=== PATIENT | male | born 1980 | race Caucasian/White ===

== ENCOUNTER 2016-11-08 01:04 | Inpatient (IN) | payer MEDICAID ==
[~2016-11-08] VITALS: Ht 160 cm; Wt 89.2 kg
[2016-11-08] VITALS (18 sets, daily range): BP systolic 109–129; BP diastolic 64–75; PULSE 53–73; RESP 17–24; TEMP 97.7
[~2016-11-08 01:04] MED LIST: ALBU8.5H3 INH; FAMO-18 PO
--- NOTE | 2016-11-08 01:44 | ERA ---
ER Documentation Chief Complaint Date/Time DATE: 11/08/16 TIME: 01:41 Chief Complaint mid abd pain x 1 week, vomited blood once today HPI The patient is a 36-year-old male, presenting to the ER because of intermittent abdominal pain for 1 week, 06/09, worse today. He claims that he vomited dark red blood 2 today, could not specify how much blood he vomited. He complains of epigastric abdominal pain, denies fever, neck pain, chest pain, dysuria, diarrhea, constipation. He does not smoke nor drink Past medical history: Asthma Past surgical history: None ROS All systems reviewed and are negative except as per history of present illness. Medications Home Meds Active Scripts Albuterol Sulfate* (Proair HFA*) 8.5 Gm Hfa.aer.ad, 2 PUFF INH Q4, #1 INHALER Prov:CARL LALA NP 11/01/16 Famotidine* (Pepcid*) 20 Mg Tablet, 20 MG PO QAM for 4 Days, TAB Prov:CARL LALA NP 11/01/16 Allergies Allergies: Coded Allergies: Penicillins (Verified Allergy, Unknown, 11/08/16) PMhx/Soc History of Surgery: No Anesthesia Reaction: No Hx Neurological Disorder: No Hx Respiratory Disorders: Yes (ASTHMA) Hx Cardiac Disorders: No Hx Psychiatric Problems: No Hx Miscellaneous Medical Probl: No Hx Alcohol Use: No Hx Substance Use: No Hx Tobacco Use: No Physical Exam Vitals Vital Signs Date Time Temp Pulse Resp B/P Pulse Ox O2 Delivery O2 Flow Rate FiO2 11/08/16 01:06 98.6 82 20 125/77 100 Physical Exam Const: No acute distress. Head: Atraumatic. Eyes: Normal Conjunctiva. ENT: Normal External Ears, Nose and Mouth. Neck: Full range of motion. No meningismus. Resp: Clear to auscultation bilaterally. Cardio: Regular rate and rhythm, no murmurs. Abd: Soft, non distended, normal bowel sounds, moderate epigastric tenderness, no rigidity, rebound, CVA tenderness Skin: No petechiae or rashes. Back: No midline or flank tenderness. Ext: No cyanosis, or edema. Neur: Awake and alert. No focal deficit Psych: Normal Mood and Affect. Result Diagram: 11/08/16 01511/08/16154 Results 24 hrs Laboratory Tests Test 11/08/16 01:55 Activated Partial Thromboplast Time 31.5Sec Alanine Aminotransferase (ALT/SGPT) 31IU/L Albumin 4.2g/dl Albumin/Globulin Ratio 1.31 Alkaline Phosphatase 65IU/L Anion Gap 17 Aspartate Amino Transf (AST/SGOT) 19IU/L Basophils # 0.010^3/ul Basophils % 0.3% Blood Urea Nitrogen 21mg/dl Calcium Level 9.2mg/dl Carbon Dioxide Level 28mmol/L Chloride Level 104mmol/L Creatinine 1.01mg/dl Direct Bilirubin 0.00mg/dl Eosinophils # 0.710^3/ul Eosinophils % 6.0% Globulin 3.20g/dl Glucose Level 95mg/dl Hematocrit 41.2% Hemoglobin 13.6g/dl INR International Normalized Ratio 0.98 Indirect Bilirubin 0.2mg/dl Lipase 40U/L Lymphocytes # 3.010^3/ul Lymphocytes % 24.6% Mean Corpuscular Hemoglobin 28.6pg Mean Corpuscular Hemoglobin Concent 33.0g/dl Mean Corpuscular Volume 86.6fl Mean Platelet Volume 9.8fl Monocytes # 0.610^3/ul Monocytes % 5.0% Neutrophils # 7.810^3/ul Neutrophils % 63.9% Nucleated Red Blood Cells # 0.010^3/ul Nucleated Red Blood Cells % 0.0/100WBC Platelet Count 72649^3/UL Potassium Level 3.8mmol/L Prothrombin Time 13.0Sec Prothrombin Time Ratio 1.0 Red Blood Count 4.7610^6/ul Red Cell Distribution Width 12.4% Sodium Level 145mmol/L Total Bilirubin 0.2mg/dl Total Protein 7.4g/dl White Blood Count 12.210^3/ul Current Medications Medications (Trade) Dose Ordered Sig/Gerardo Route PRN Reason Start Time Stop Time Status Last Admin Dose Admin Pantoprazole (Protonix Iv) 40 mg ONCE STAT IV 11/08/16 01:47 11/08/16 01:50 DC 11/08/16 02:07 Morphine Sulfate (morphine) 4 mg ONCE STAT IV 11/08/16 01:47 11/08/16 01:50 DC 11/08/16 02:08 Ondansetron HCl (Zofran Inj) 4 mg ONCE STAT IV 11/08/16 01:47 11/08/16 01:50 DC 11/08/16 02:07 Procedures/MDM EKG: Read by emergency physician Rate/Rhythm: Normal Sinus Rhythm 74 beats/min QRS, ST, T-waves: No ST elevation, no T inversion Impression: Normal EKG [place] [id number] Radiology Main Line: [phone] DIAGNOSTIC IMAGING REPORT Patient: MANI RIVAS : 1980 Age: 36 Sex: M MR #: [id number] DOS: 11/08/16 0000 Ordering MD: ANNELISE TAO MD Location: E/R Room/Bed: PROCEDURE: CHEST - 1 VIEW CLINICAL INDICATION: 36-year-old male for nasogastric tube placement. TECHNIQUE: A single frontal AP view of the chest was performed portably. The images were reviewed on a PACS workstation. COMPARISON: Chest x-ray November 01, 2016. FINDINGS: There is a nasogastric tube identified with the tip in the gastric fundus region. The cardiomediastinal silhouette has a normal appearance. There is no evidence for an infiltrate. There is no evidence for congestive heart failure. There is no evidence for pneumothorax. The osseous structures are intact. IMPRESSION: 1. Nasogastric tube identified with the tip in the gastric fundus region. 2. No evidence for active cardiopulmonary disease. .Nabil Lawrence MD, MD Date Time Electronically viewed and signed by .Nabil Lawrence MD, on 11/08/2016 02:57 .M/ CC: ANNELISE TAO MD [place] [id number] Radiology Main Line: [phone] DIAGNOSTIC IMAGING REPORT Patient: MANI RIVAS : 1980 Age: 36 Sex: M MR #: [id number] DOS: 11/08/16 0152 Ordering MD: ANNELISE TAO MD Location: E/R Room/Bed: PROCEDURE: CT ABDOMEN/PELVIS WITHOUT CONTRAST CLINICAL INDICATION: 36-year-old male with abdominal pain. TECHNIQUE: The study was performed utilizing a [employer] VCT 64-slice CT scanner. Direct axial sections were obtained through the abdomen and pelvis without the use of intravenous contrast material. Sagittal and coronal reformations were obtained. Automated exposure control and iterative reconstruction techniques were utilized for this examination. The images were reviewed on a PACS workstation. CTD/vol = 10.8 mGy; Total Exam DLP = 595.6 mGy -cm. COMPARISON: None. FINDINGS: The lung bases are unremarkable. There is no evidence for significant pleural effusion. The liver has a normal size and contour without focal areas of abnormal density. No intrahepatic nor extrahepatic biliary ductal dilatation is seen. The gallbladder demonstrates no wall thickening nor pericholecystic fluid. No biliary stones are evident. The pancreas is without areas of abnormal attenuation. The spleen is identified and has a normal size without abnormal density. The adrenal glands are unremarkable. The kidneys are without abnormal density. No hydroureteronephrosis nor nephroureterolithiasis is evident. The urinary bladder contains urine. There is mild retained stool within the ascending colon without obstruction. The appendix is visualized and is without abnormal thickening or surrounding inflammatory reaction. There is no significant free fluid. There is a small left inguinal hernia containing fat. The aortoiliac vessels are without aneurysmal dilatation. The osseous structures are intact. IMPRESSION: 1. No CT evidence for obstructive uropathy or renal calculi. 2. Mild retained stool within the ascending colon without obstruction. 3. No CT evidence for appendicitis. 4. Small left inguinal hernia containing fat. .Nabil Lawrence MD, MD Date Time Electronically viewed and signed by .Nabil Lawrence MD, MD on 11/08/2016 02:29 .M/ CC: ANNELISE TAO MD MEDICAL MAKING DECISION: The patient is a 36-year-old male, presenting with acute upper gastrointestinal bleeding. The NG tube was inserted that drained out 100 mm of coffee-ground emesis. He was treated with 1 L normal saline, morphine 4 mg IV for pain, Zofran 4 mg IV for nausea, Protonix 40 mg IV with good response. The differential diagnoses considered include but are not limited to gastritis, peptic ulcer disease, esophageal varices, Morelia-Stiles tear. Critical Care: Time: 35 minutes excluding all billable procedures. Treatments/Evaluations: Close monitoring and treatment of unstable vital signs, cardiorespiratory, and neurologic status, while maintaining tight balance of fluid, respiratory, and cardiac interventions. Departure Diagnosis: Primary Impression: Acute upper GI bleed Condition: Stable Comments I discussed the findings with the patient. I discussed the patient with the on- call hospitalist Dr. Palacios who was made aware of the lab, the treatment, the patient condition. The patient is admitted to telemetry at 4 AM The patient's blood pressure was elevated (>120/80) but appears stable without evidence of hypertension emergency or urgency. The patient was counseled about the risks of hypertension and urged to pursue outpatient monitoring and therapy within a week after discharge with their primary care physician. ANNELISE TAO MD Nov 08, 2016 01:44
[2016-11-08] MEDS ORDERED: morphine 4 MG/ML VIAL IV STA (01:47)
[2016-11-08] MEDS ORDERED: PANTOPRAZOLE 40 MG INJ IV STA (01:47)
[2016-11-08] MEDS ORDERED: ONDANSETRON 4 MG INJ IV STA (01:47)
[2016-11-08 02:19] LABS: ADD SCAN DIFF NO
[2016-11-08 02:24] LABS: BASOPHILS % 0.3 % (0.0-2.0); EOSINOPHILS # 0.7 10^3/ul (0.0-0.5); HEMATOCRIT 41.2 % (42.0-52.0); HEMOGLOBIN 13.6 g/dl (14.0-18.0); LYMPHOCYTES % 24.6 % (15.0-51.0); MEAN CORPUSCULAR HEMOGLOBIN 28.6 pg (29.0-33.0); MEAN CORPUSCULAR VOLUME 86.6 fl (82.0-101.0); MEAN PLATELET VOLUME 9.8 fl (7.4-10.4); MONOCYTE # 0.6 10^3/ul (0.3-0.9); NEUTROPHIL # 7.8 10^3/ul (1.6-7.5); NEUTROPHILS % 63.9 % (39.0-77.0); PLATELET COUNT 341 10^3/UL (140-415); RED BLOOD COUNT 4.76 10^6/ul (4.70-6.10); RED CELL DISTRIBUTION WIDTH 12.4 % (11.5-14.5); WHITE BLOOD COUNT 12.2 10^3/ul (4.8-10.8)
--- NOTE | 2016-11-08 02:30 | RADRPT ---
PROCEDURE: CT ABDOMEN/PELVIS WITHOUT CONTRAST CLINICAL INDICATION: 36-year-old male with abdominal pain. TECHNIQUE: The study was performed utilizing a [employer] VCT 64-slice CT scanner. Direct axia l sections were obtained through the abdomen and pelvis without the use of intravenous contrast mate rial. Sagittal and coronal reformations were obtained. Automated exposure control and iterative romeo nstruction techniques were utilized for this examination. The images [facility] CTD/vol = 10.8 mGy; Total Exam DLP = 595.6 mGy-cm. COMPARISON: None. FINDINGS: The lung bases are unremarkable. There is no evidence for significant pleural effusion. The liver has a normal size and contour without focal areas of abnormal density. No intrahepatic nor extrahepa tic biliary ductal dilatation is seen. The gallbladder demonstrates no wall thickening nor perichole cystic fluid. No biliary stones are evident. The pancreas is without areas of abnormal attenuation. The spleen is identified and has a normal size without abnormal density. The adrenal glands are unr emarkable. The kidneys are without abnormal density. No hydroureteronephrosis nor nephroureterolithi asis is evident. The urinary bladder contains urine. There is mild retained stool within the ascendi ng colon without obstruction. The appendix is visualized and is without abnormal thickening or surro unding inflammatory reaction. There is no significant free fluid. There is a small left inguinal he rnia containing fat. The aortoiliac vessels are without aneurysmal dilatation. The osseous structures are intact. IMPRESSION: 1. No CT evidence for obstructive uropathy or renal calculi. 2. Mild retained stool within the ascending colon without obstruction. 3. No CT evidence for appendicitis. 4. Small left inguinal hernia containing fat. .Nabil Lawrence MD, MD Date Time Electronically viewed and signed by .Nabil Lawrence MD, MD on 11/08/2016 02:29 .M/
[2016-11-08 02:34] LABS: ALBUMIN 4.2 g/dl (3.3-4.9); INR 0.98
[2016-11-08 02:35] LABS: PARTIAL THROMBOPLASTIN TIME 31.5 Sec (25.0-35.0); POTASSIUM 3.8 mmol/L (3.5-5.1)
[2016-11-08 02:37] LABS: ALBUMIN/GLOBULIN RATIO 1.31; BILIRUBIN,INDIRECT 0.2 mg/dl (0-1.1); BILIRUBIN,TOTAL 0.2 mg/dl (0.2-1.3); CREATININE 1.01 mg/dl (0.61-1.24); TOTAL PROTEIN 7.4 g/dl (6.1-8.1)
[2016-11-08 02:38] LABS: CALCIUM 9.2 mg/dl (8.4-10.2)
--- NOTE | 2016-11-08 02:57 | RADRPT ---
PROCEDURE: CHEST - 1 VIEW CLINICAL INDICATION: 36-year-old male for nasogastric tube placement. TECHNIQUE: A single frontal AP view of the chest was performed portably. The images were reviewed on a PACS workstation. COMPARISON: Chest x-ray November 01, 2016. FINDINGS: There is a nasogastric tube identified with the tip in the gastric fundus region. The cardiomediast inal silhouette has a normal appearance. There is no evidence for an infiltrate. There is no evide nce for congestive heart failure. There is no evidence for pneumothorax. The osseous structures are intact. IMPRESSION: 1. Nasogastric tube identified with the tip in the gastric fundus region. 2. No evidence for active cardiopulmonary disease. .Nabil Lawrence MD, MD Date Time Electronically viewed and signed by .Nabil Lawrence MD, on 11/08/2016 02:57 .M/
[2016-11-08] MEDS ORDERED: NACL 0.9% 3 ML SYG IV SCH (04:30)
[2016-11-08] MEDS ORDERED: ONDANSETRON 4 MG TAB PO PRN (04:30)
[2016-11-08] MEDS ORDERED: LORAZEPAM 2 MG INJ IV PRN (04:30)
[2016-11-08] MEDS ORDERED: ONDANSETRON 4 MG INJ IV PRN (04:30)
[2016-11-08] MEDS: SOD CHLORIDE 0.9% 1,000 ML IV SCH ×3 (04:48→20:11)
[2016-11-08] MEDS: ALBUTEROL HFA 8 GM INHALER INH SCH ×5 (07:18→20:10)
--- NOTE | 2016-11-08 09:29 | CONS ---
Date/Time of Note Date/Time of Note DATE: 11/08/16 TIME: 09:23 Assessment/Plan Assessment/Plan Additional Assessment/Plan Acute anemia Evaluate GI bleed versus chronic iron deficiency vs other etiology Stool OB, if positive strongly recommend EGD Monitor H&H every 8 hours, transfuse 2 units for hemoglobin less than 7.[address] abdomen: 1. No CT evidence for obstructive uropathy or renal calculi. 2. Mild retained stool within the ascending colon without obstruction. 3. No CT evidence for appendicitis. 4. Small left inguinal hernia containing fat. Continue PPI and Octreotide drips EGD if clinically indicated, pt advised of R/B/A to procedure and provide informed consent to proceed Further recommendations depend on clinical course Patient seen in collaboration with Dr. Leung Consultation Date/Type/Reason Admit Date/Time Nov 08, 2016 at 04:02 Type of Consultation: Gastroenterology Reason for Consultation Anemia Hx of Present Illness Mr. Mo Blunt is a 36-year-old Welsh-speaking male that presented to the ED today secondary to intense abdominal pain and one episode of hematemesis. Patient states that symptoms have been present for close to weeks but intensified yesterday. He denies fever, chills, shortness of breath, diarrhea, sick contacts, alcohol abuse, NSAID use, and any comorbid conditions. Patient also denies previous episode. Recommend EGD, patient advised of risks /benefits/alternatives to procedure and he provides informed consent to proceed. Past Medical History Medical History: no pertinent history Past Surgical History Past Surgical Hx: no surgical history Social History Alcohol Use: rarely Smoking Status: Never smoker Exam/Review of Systems Vital Signs Vitals Vital Signs Date Time Temp Pulse Resp B/P Pulse Ox O2 Delivery O2 Flow Rate FiO2 11/08/16 08:46 98.7 68 17 129/75 98 Room Air Exam Constitutional: alert, oriented, well developed Psych: nl mood/affect Head: normocephalic Eyes: EOMI, nl conjunctiva, nl lids ENMT: nl external ears & nose, nl lips & teeth, nl nasal mucosa & septum Respiratory: clear to auscultation, normal air movement Cardiovascular: regular rate and rhythm Gastrointestinal: soft, epigastric tenderness Musculoskeletal: nl extremities to inspection Neurological: POWER TECHNICIAN II-XII intact Results Result Diagram: 11/08/1615411/08/16154 Results 24 hrs Laboratory Tests Test 11/08/16 01:55 Activated Partial Thromboplast Time 31.5 Alanine Aminotransferase (ALT/SGPT) 31 Albumin 4.2 Albumin/Globulin Ratio 1.31 Alkaline Phosphatase 65 Anion Gap 17 H Aspartate Amino Transf (AST/SGOT) 19 Basophils # 0.0 Basophils % 0.3 Blood Urea Nitrogen 21 H Calcium Level 9.2 Carbon Dioxide Level 28 Chloride Level 104 Creatinine 1.01 Direct Bilirubin 0.00 Eosinophils # 0.7 H Eosinophils % 6.0 Globulin 3.20 Glucose Level 95 Hematocrit 41.2 L Hemoglobin 13.6 L INR International Normalized Ratio 0.98 Indirect Bilirubin 0.2 Lipase 40 Lymphocytes # 3.0 H Lymphocytes % 24.6 Mean Corpuscular Hemoglobin 28.6 L Mean Corpuscular Hemoglobin Concent 33.0 Mean Corpuscular Volume 86.6 Mean Platelet Volume 9.8 Monocytes # 0.6 Monocytes % 5.0 Neutrophils # 7.8 H Neutrophils % 63.9 Nucleated Red Blood Cells # 0.0 Nucleated Red Blood Cells % 0.0 Platelet Count 341 Potassium Level 3.8 Prothrombin Time 13.0 Prothrombin Time Ratio 1.0 Red Blood Count 4.76 Red Cell Distribution Width 12.4 Sodium Level 145 H Total Bilirubin 0.2 Total Protein 7.4 White Blood Count 12.2 H Medications Medications Current Medications Sodium Chloride (NS) 1,000 ml @ 125 mls/hr Q8H IV Last administered on t 08:31; Admin Dose 125 MLS/HR; Start 11/08/16 at 04:26 Lorazepam (Ativan) 0.5 mg Q6H PRN IV ANXIETY; Start 11/08/16 at 04:30 Ondansetron HCl (Zofran Tab) 4 mg Q6H PRN PO NAUSEA AND/OR VOMITING; Start 07/17 at 04:30 Ondansetron HCl (Zofran Inj) 4 mg Q6H PRN IV NAUSEA AND/OR VOMITING; Start 07/17 at 04:30 JIMMIE BETHEA Nov 08, 2016 09:29
--- NOTE | 2016-11-08 10:18 | HP ---
Date/Time of Note Date/Time of Note DATE: 11/08/16 TIME: 10:18 Assessment/Plan VTE Prophylaxis VTE Prophylaxis Intervention: contraindicated VTE Contraindication Reason: bleeding Lines/Catheters IV Catheter Type (from Nrsg): Peripheral IV Assessment/Plan Assessment/Plan 1) Acute upper GI bleed - Admit to Tele - GI Consult - NPO HPI/ROS Admit Date/Time Admit Date/Time Nov 08, 2016 at 04:02 Hx of Present Illness Chief Complaint mid abd pain x 1 week, vomited blood once today HPI The patient is a 36-year-old male, presenting to the ER because of intermittent abdominal pain for 1 week, 06/09, worse today. He claims that he vomited dark red blood 2 today, could not specify how much blood he vomited. He complains of epigastric abdominal pain, denies fever, neck pain, chest pain, dysuria, diarrhea, constipation. He does not smoke, but he admits to drinking a couple of drinks once in a while. ER course per ER physician: The NG tube was inserted that drained out 100 mm of coffee-ground emesis. He was treated with 1 L normal saline, morphine 4 mg IV for pain, Zofran 4 mg IV for nausea, Protonix 40 mg IV with good response. The differential diagnoses considered include but are not limited to gastritis, peptic ulcer disease, esophageal varices, Morelia-Stiles tear. ROS Constitutional: No chills, No febrile Eyes: No discharge, No visual change ENT: No dysphagia, No sore throat Respiratory: No cough, No shortness of breath, No wheezing Cardiovascular: No chest pain, No edema, No palpitations Gastrointestinal: blood, pain, No diarrhea Genitourinary: No dysuria, No hematuria Musculoskeletal: No back pain, No neck pain Skin: No pruritis, No rash Neurologic: No confusion, No dizziness, No focal-weakness, No headache, No syncope Endocrine: No polydypsia, No polyuria Lymphatic: No adenopathy, No tender nodes Immunologic: No pruritis, No rhinitis PMH/Family/Social Past Medical History Medical History: other (Asthma) Past Surgical History Past Surgical Hx: no surgical history Social History Alcohol Use: rarely Smoking Status: Never smoker Drug Use: none Exam/Review of Systems Vital Signs Vitals Vital Signs Date Time Temp Pulse Resp B/P Pulse Ox O2 Delivery O2 Flow Rate FiO2 11/08/16 09:23 69 11/08/16 08:46 98.7 17 129/75 98 Room Air Exam Constitutional: alert, oriented, well developed Head: atraumatic, normocephalic Eyes: EOMI (No scleral icterus.) Neck: supple Respiratory: clear to auscultation, normal air movement Cardiovascular: nl pulses, regular rate and rhythm Gastrointestinal: bowel sounds (Hypoactive), soft, tender (Minimal tenderness in epigastrium. No HSM appreciated.), No hepatomegaly, No mass, No rebound or guarding Musculoskeletal: muscle tone (Normal), nl extremities to inspection Neurological: GTA II-XII intact (grossly), nl mental status, nl speech, nl strength Skin: nl turgor (Normal moisture and temperature. No appreciable rash. No jaundice.) Lymph: nl lymph nodes (cervical) Labs Result Diagram: 11/08/1615411/08/16154 Medications Medications Current Medications Sodium Chloride (NS) 1,000 ml @ 125 mls/hr Q8H IV Last administered on t 08:31; Admin Dose 125 MLS/HR; Start 11/08/16 at 04:26 Lorazepam (Ativan) 0.5 mg Q6H PRN IV ANXIETY; Start 11/08/16 at 04:30 Ondansetron HCl (Zofran Tab) 4 mg Q6H PRN PO NAUSEA AND/OR VOMITING; Start 07/17 at 04:30 Ondansetron HCl 4 mg 4 mg Q6H PRN IV NAUSEA AND/OR VOMITING; Start 11/08/16 at 04:30 Pantoprazole 80 mg/Sodium Chloride 100 ml @ 10 mls/hr Q10H IV ; Start 11/08/16 at 11:00 Octreotide Acetate/Sodium Chloride (Sandostatin/NS) 50 ml @ 2.5 mls/hr Q20H IV ; Start 11/08/16 at 11:00 Influenza Virus Vaccine (Fluzone) 0.5 ml ONCE ONCE IM* ; Start 11/10/16 at 09:00 ; Stop 11/10/16 at 09:01 Procedures Procedures Laboratory Tests Test 11/08/16 01:55 Activated Partial Thromboplast Time 31.5Sec Alanine Aminotransferase (ALT/SGPT) 31IU/L Albumin 4.2g/dl Albumin/Globulin Ratio 1.31 Alkaline Phosphatase 65IU/L Anion Gap 17 Aspartate Amino Transf (AST/SGOT) 19IU/L Basophils # 0.010^3/ul Basophils % 0.3% Blood Urea Nitrogen 21mg/dl Calcium Level 9.2mg/dl Carbon Dioxide Level 28mmol/L Chloride Level 104mmol/L Creatinine 1.01mg/dl Direct Bilirubin 0.00mg/dl Eosinophils # 0.710^3/ul Eosinophils % 6.0% Globulin 3.20g/dl Glucose Level 95mg/dl Hematocrit 41.2% Hemoglobin 13.6g/dl INR International Normalized Ratio 0.98 Indirect Bilirubin 0.2mg/dl Lipase 40U/L Lymphocytes # 3.010^3/ul Lymphocytes % 24.6% Mean Corpuscular Hemoglobin 28.6pg Mean Corpuscular Hemoglobin Concent 33.0g/dl Mean Corpuscular Volume 86.6fl Mean Platelet Volume 9.8fl Monocytes # 0.610^3/ul Monocytes % 5.0% Neutrophils # 7.810^3/ul Neutrophils % 63.9% Nucleated Red Blood Cells # 0.010^3/ul Nucleated Red Blood Cells % 0.0/100WBC Platelet Count 59852^3/UL Potassium Level 3.8mmol/L Prothrombin Time 13.0Sec Prothrombin Time Ratio 1.0 Red Blood Count 4.7610^6/ul Red Cell Distribution Width 12.4% Sodium Level 145mmol/L Total Bilirubin 0.2mg/dl Total Protein 7.4g/dl White Blood Count 12.210^3/ul RADIOLOGY: PROCEDURE: CHEST - 1 VIEW IMPRESSION: 1. Nasogastric tube identified with the tip in the gastric fundus region. 2. No evidence for active cardiopulmonary disease. PROCEDURE: CT ABDOMEN/PELVIS WITHOUT CONTRAST FINDINGS: The lung bases are unremarkable. There is no evidence for significant pleural effusion. The liver has a normal size and contour without focal areas of abnormal density. No intrahepatic nor extrahepatic biliary ductal dilatation is seen. The gallbladder demonstrates no wall thickening nor pericholecystic fluid. No biliary stones are evident. The pancreas is without areas of abnormal attenuation. The spleen is identified and has a normal size without abnormal density. The adrenal glands are unremarkable. The kidneys are without abnormal density. No hydroureteronephrosis nor nephroureterolithiasis is evident. The urinary bladder contains urine. There is mild retained stool within the ascending colon without obstruction. The appendix is visualized and is without abnormal thickening or surrounding inflammatory reaction. There is no significant free fluid. There is a small left inguinal hernia containing fat. The aortoiliac vessels are without aneurysmal dilatation. The osseous structures are intact. IMPRESSION: 1. No CT evidence for obstructive uropathy or renal calculi. 2. Mild retained stool within the ascending colon without obstruction. 3. No CT evidence for appendicitis. 4. Small left inguinal hernia containing fat. EKG: EKG: Read by emergency physician Rate/Rhythm: Normal Sinus Rhythm 74 beats/min QRS, ST, T-waves: No ST elevation, no T inversion Impression: Normal EKG CHLOÉ HAMMOND DO Nov 08, 2016 10:18
[2016-11-08 10:23] LABS: HEMATOCRIT 40.3 % (42.0-52.0); HEMOGLOBIN 13.1 g/dl (14.0-18.0)
[2016-11-08] MEDS ORDERED: OCTREOTIDE 500 MCG in SOD CHLORIDE 0.9% 49 ML IV SCH (11:00)
[2016-11-08] MEDS: PANTOPRAZOLE IV 80 MG in SOD CHLORIDE 0.9% 100 ML IV SCH ×2 (12:45→20:11)
[2016-11-08] MEDS ORDERED: PROPOFOL 20 ML ONE (14:40)
[2016-11-08] MEDS ORDERED: FENTAnyl 50 MCG/ML VIAL ONE (14:40)
[2016-11-08] MEDS: SUCRALFATE (100 MG/ML) 10ML CUP PO SCH ×2 (16:58→20:10)
[2016-11-08 18:27] LABS: HEMATOCRIT 41.6 % (42.0-52.0); HEMOGLOBIN 13.7 g/dl (14.0-18.0)
[2016-11-08] MEDS ORDERED: ACETAMINOPHEN 500 MG TAB PO PRN (20:30)
[2016-11-09] VITALS (12 sets, daily range): BP systolic 101–115; BP diastolic 61–74; PULSE 63–98; RESP 15–20; Ht 160 cm; Wt 89.2 kg
[2016-11-09] MEDS: ALBUTEROL HFA 8 GM INHALER INH SCH ×6 (00:25→20:27)
[2016-11-09 01:12] LABS: HEMOGLOBIN 12.6 g/dl (14.0-18.0)
[2016-11-09] MEDS: SOD CHLORIDE 0.9% 1,000 ML IV SCH ×3 (05:07→20:27)
[2016-11-09 05:58] LABS: ADD SCAN DIFF NO
[2016-11-09 06:09] LABS: BASOPHILS % 0.3 % (0.0-2.0); EOSINOPHILS # 0.7 10^3/ul (0.0-0.5); EOSINOPHILS % 8.5 % (0.0-7.0); HEMATOCRIT 38.8 % (42.0-52.0); HEMOGLOBIN 12.5 g/dl (14.0-18.0); LYMPHOCYTES # 2.4 10^3/ul (0.8-2.9); LYMPHOCYTES % 27.5 % (15.0-51.0); MEAN CORPUSCULAR HEMOGLOBIN 28.3 pg (29.0-33.0); MEAN CORPUSCULAR HGB CONC 32.2 g/dl (32.0-37.0); MEAN CORPUSCULAR VOLUME 87.8 fl (82.0-101.0); MEAN PLATELET VOLUME 9.8 fl (7.4-10.4); MONOCYTE # 0.7 10^3/ul (0.3-0.9); MONOCYTES % 7.5 % (0.0-11.0); NEUTROPHIL # 4.9 10^3/ul (1.6-7.5); PLATELET COUNT 309 10^3/UL (140-415); RED BLOOD COUNT 4.42 10^6/ul (4.70-6.10); RED CELL DISTRIBUTION WIDTH 12.7 % (11.5-14.5); WHITE BLOOD COUNT 8.7 10^3/ul (4.8-10.8)
--- NOTE | 2016-11-09 06:13 | GILP ---
DATE OF PROCEDURE: PROCEDURE: Esophagogastroduodenoscopy with biopsies. BRIEF HISTORY AND INDICATIONS: The patient is being evaluated for coffee-ground emesis and abdomina l pain. PREMEDICATION: Monitored anesthesia care by anesthesiologist. SURGEON: Clarissa Leung MD. INSTRUMENT USED: TECHNIQUE: After informed consent, with the patient/relatives understanding the procedure, its indic ations, potential risks and complications, including but not limited to: allergic reaction, bleeding , perforation or infection, and after all pertinent questions were answered to the patient's satisfa ction, the patient/relatives signed witnessed informed consent. Following this, premedication was administered slowly IV push under careful cardiovascular and respi ratory monitoring with pulse oximetry, automatic blood pressure and multiplex operator. Once the sedative effect was achieved the patient was place in the left lateral decubitus, the panen doscope was introduced and advanced under visual control. FINDINGS: Careful examination of the upper gastrointestinal tract, both on insertion as well as wi thdrawal of the instrument disclosed the following findings: ESOPHAGUS: The distal esophagus shows significant erythema, edema and superficial erosion of the mu cosa. STOMACH: Upon entrance to the stomach, air was insufflated, the gastric san distended normally. The mucosa of the fundus, body and antrum of the stomach was carefully examined, shows erythema and edema of the mucosa of a moderate degree. A 2 cm deep ulceration in the incisura angularis is ident ified. The ulcer has a clean base and no stigmata of recent bleeding, no visible vessel. Biopsies were obtained in limited fashion of the edges of the ulcer which has benign endoscopic appearance. PYLORUS: The pylorus appears patent and within normal limits, with no evidence of gastric outlet ob struction. DUODENUM: The duodenal mucosa was carefully examined in the duodenal bulb as well as the second por tion of the duodenum and appears unremarkable with no evidence of duodenitis, ulcer or neoplasm. The instrument was then withdrawn, the patient tolerated the procedure well and was transfer out of the endoscopy suite awake, and in good condition to continue recovery under observation IMPRESSION: 1. Erosive esophagitis. 2. A 2 cm clean based gastric ulceration with no stigmata, no visible vessel. Biopsies obtained, r ule out CA, benign endoscopic appearance. PLAN: The patient will be continued on PPI drip. Octreotide may be discontinued. Carafate liquid will be added to his regimen. Pathology will be reviewed as soon as available. Close monitoring of H and H and transfusion as necessary. Diet will be slowly advanced as tolerated. Dictated By: CLARISSA LEUNG MS/BA Conf#: [id number] DID#: [id number]
[2016-11-09 06:20] LABS: ALBUMIN 3.5 g/dl (3.3-4.9)
[2016-11-09 06:21] LABS: POTASSIUM 4.1 mmol/L (3.5-5.1)
[2016-11-09 06:23] LABS: ALBUMIN/GLOBULIN RATIO 1.29; BILIRUBIN,INDIRECT 0.6 mg/dl (0-1.1); BILIRUBIN,TOTAL 0.6 mg/dl (0.2-1.3); CALCIUM 8.2 mg/dl (8.4-10.2); CREATININE 0.85 mg/dl (0.61-1.24); TOTAL PROTEIN 6.2 g/dl (6.1-8.1)
[2016-11-09] MEDS: PANTOPRAZOLE IV 80 MG in SOD CHLORIDE 0.9% 100 ML IV SCH ×2 (06:41→17:15)
[2016-11-09 06:56] LABS: CHOL/HDL RATIO 3.3 RATIO; MAGNESIUM 2.1 mg/dl (1.7-2.5); PHOSPHORUS 2.8 mg/dl (2.5-4.9)
[2016-11-09 07:15] LABS: THYROID STIMULATING HORMONE 0.37 MIU/L (0.465-4.680)
[2016-11-09] MEDS: SUCRALFATE (100 MG/ML) 10ML CUP PO SCH ×4 (09:34→20:27)
--- NOTE | 2016-11-09 10:08 | CONS ---
Date/Time of Note Date/Time of Note DATE: 11/09/16 TIME: 10:06 Assessment/Plan Assessment/Plan Chief Complaint/Hosp Course Mr. Mo Blunt is a 36-year-old Vincentian-speaking male that presented to the ED today secondary to intense abdominal pain and one episode of hematemesis. Patient states that symptoms have been present for close to weeks but intensified yesterday. He denies fever, chills, shortness of breath, diarrhea, sick contacts, alcohol abuse, NSAID use, and any comorbid conditions. Patient also denies previous episode. Recommend EGD, patient advised of risks /benefits/alternatives to procedure and he provides informed consent to proceed. Problems: Additional Assessment/Plan Acute anemia Evaluate GI bleed versus chronic iron deficiency vs other etiology Monitor H&H every 8 hours, transfuse 2 units for hemoglobin less than 7.[address] abdomen: 1. No CT evidence for obstructive uropathy or renal calculi. 2. Mild retained stool within the ascending colon without obstruction. 3. No CT evidence for appendicitis. 4. Small left inguinal hernia containing fat. Continue PPI drip EGD: 1. Erosive esophagitis. 2. A 2 cm clean based gastric ulceration with no stigmata, no visible vessel. Biopsies obtained, rule out CA, benign endoscopic appearance. Further recommendations depend on clinical course Patient seen in collaboration with Dr. Leung Consultation Date/Type/Reason Admit Date/Time Nov 08, 2016 at 04:02 Initial Consult Date Type of Consultation: Gastroenterology 24 HR Interval Summary Free Text/Dictation Tolerating diet Hemoglobin stable Advised patient of EGD results with manufacturing production manager Awaiting pathology results Exam/Review of Systems Vital Signs Vitals Vital Signs Date Time Temp Pulse Resp B/P Pulse Ox O2 Delivery O2 Flow Rate FiO2 11/09/16 08:29 63 11/09/16 05:03 97.8 18 101/64 98 Room Air Intake and Output 11/08/16 11/08/16 11/09/16 15:00 23:00 07:00 Intake Total 2107.5 ml 1025 ml Output Total 500 ml 750 ml Balance 1607.5 ml 275 ml Exam Constitutional: alert, oriented, well developed Psych: nl mood/affect Head: normocephalic Eyes: EOMI, nl conjunctiva, nl lids ENMT: nl external ears & nose, nl lips & teeth, nl nasal mucosa & septum Respiratory: clear to auscultation, normal air movement Cardiovascular: regular rate and rhythm Gastrointestinal: soft, epigastric tender Musculoskeletal: nl extremities to inspection Neurological: SUPERVISOR ENGINE ASSEMBLY II-XII intact Results Result Diagram: 11/09/1638 11/09/16 0538 Results 24 hrs Laboratory Tests Test 11/08/16 17:53 11/09/16 00:29 11/09/16 05:38 Hematocrit 41.6 L 39.0 L 38.8 L Hemoglobin 13.7 L 12.6 L 12.5 L Alanine Aminotransferase (ALT/SGPT) 30 Albumin 3.5 Albumin/Globulin Ratio 1.29 Alkaline Phosphatase 58 Anion Gap 13 Aspartate Amino Transf (AST/SGOT) 15 Basophils # 0.0 Basophils % 0.3 Blood Urea Nitrogen 13 Calcium Level 8.2 L Carbon Dioxide Level 27 Chloride Level 106 Cholesterol Level 129 Cholesterol/HDL Ratio 3.3 Creatinine 0.85 Direct Bilirubin 0.00 Eosinophils # 0.7 H Eosinophils % 8.5 H Free Thyroxine 1.02 Globulin 2.70 Glucose Level 89 HDL Cholesterol 38 Hemoglobin A1c 5.6 Indirect Bilirubin 0.6 LDL Cholesterol, Calculated 74 Lymphocytes # 2.4 Lymphocytes % 27.5 Magnesium Level 2.1 Mean Corpuscular Hemoglobin 28.3 L Mean Corpuscular Hemoglobin Concent 32.2 Mean Corpuscular Volume 87.8 Mean Platelet Volume 9.8 Monocytes # 0.7 Monocytes % 7.5 Neutrophils # 4.9 Neutrophils % 56.0 Nucleated Red Blood Cells # 0.0 Nucleated Red Blood Cells % 0.0 Phosphorus Level 2.8 Platelet Count 309 Potassium Level 4.1 Red Blood Count 4.42 L Red Cell Distribution Width 12.7 Sodium Level 142 Thyroid Stimulating Hormone (TSH) 0.370 L Total Bilirubin 0.6 Total Protein 6.2 # Triglycerides Level 84 Vitamin D 1,25-Dihydroxy 20.9 L White Blood Count 8.7 # Medications Medications Current Medications Sodium Chloride (NS) 1,000 ml @ 125 mls/hr Q8H IV Last administered on t 09:35; Admin Dose 125 MLS/HR; Start 11/08/16 at 04:26 Lorazepam (Ativan) 0.5 mg Q6H PRN IV ANXIETY; Start 11/08/16 at 04:30 Ondansetron HCl (Zofran Tab) 4 mg Q6H PRN PO NAUSEA AND/OR VOMITING; Start 07/17 at 04:30 Ondansetron HCl 4 mg 4 mg Q6H PRN IV NAUSEA AND/OR VOMITING; Start 11/08/16 at 04:30 Pantoprazole/ Sodium Chloride (Protonix Iv/NS) 100 ml @ 10 mls/hr Q10H IV Last administered on 11/09/16 06:41; Admin Dose 10 MLS/HR; Start 11/08/16 at 11 :00 Influenza Virus Vaccine (Fluzone) 0.5 ml ONCE ONCE IM* ; Start 11/10/16 at 09:00 ; Stop 11/10/16 at 09:01 Sucralfate (Carafate Susp) 1 gm QID PO Last administered on 11/09/16 09:34; Admin Dose 1 GM; Start 11/08/16 at 17:00 Acetaminophen (Tylenol Tab) 1,000 mg Q6H PRN PO PAIN AND OR ELEVATED TEMP; Start 11/08/16 at 20:30 JIMMIE BETHEA Nov 09, 2016 10:08
[2016-11-09 11:49] LABS: HEMATOCRIT 37.6 % (42.0-52.0); HEMOGLOBIN 12.2 g/dl (14.0-18.0)
[2016-11-09] MEDS: CHOLECALCIFEROL 1,000 UNIT TAB PO SCH (12:10)
--- NOTE | 2016-11-09 13:13 | PN ---
DATE: 11/09/2016 TIME OF EVALUATION: 11:45 a.m. SUBJECTIVE DATA: Denies abdominal pain. Denies any gastrointestinal bleeding. OBJECTIVE DATA: VITAL SIGNS: Temperature 97.8, pulse 67, respiratory rate 18, blood pressure 101/64, oxygen saturation 98% on room air. GENERAL: This is an obese male lying in bed in no apparent distress. HEENT: Head normocephalic and atraumatic. Eyes: Anicteric sclerae. Conjunctivae clear. ENT: Nasal septum is midline. Oral mucosa is moist. NECK: Supple. No JVD noticed. RESPIRATORY: Bilaterally clear to auscultation. No adventitious breath sounds. No use of accessory muscles of respiration. CARDIAC: Regular rate and rhythm. No murmurs. ABDOMEN: Soft, nontender and nondistended. Bowel sounds positive in all 4 quadrants. GENITOURINARY: Deferred. EXTREMITIES: No cyanosis, no clubbing, no edema. Peripheral pulses are palpable. NEUROLOGIC: The patient is awake, alert and oriented. Cranial nerves are grossly intact. LABORATORY AND DIAGNOSTIC DATA: WBC 8.7, hemoglobin 12.5, hematocrit 38.8, platelet count 309. Sodium 142, potassium 4.1, chloride 106, carbon dioxide 27 , anion gap 13, BUN 13, creatinine 0.85, glucose 89, calcium 8.2, phosphorus 2.8 , magnesium 2.1. Vitamin D level was 20.9. Hemoglobin A1c 5.6. Triglycerides 84, total cholesterol 129, LDL 74, HDL 38. ASSESSMENT AND PLAN: 1. Hematemesis and abdominal pain. Status post esophagogastroduodenoscopy that showed erosive esophagitis and a 2 cm clean-based gastric ulceration with no stigmata. Continue proton pump inhibitors. Continue blood transfusion as needed. The patient's H and H has not dropped significantly down to transfuse any blood. 2. Normocytic anemia secondary to acute blood loss. Monitor H and H closely. Transfuse as needed. Continue proton pump inhibitors. 3. Erosive esophagitis. Continue proton pump inhibitors. Continue Carafate. 4. Vitamin D deficiency. Will start the patient on vitamin D supplements. 5. Fluid, electrolytes and nutrition. Full liquid diet as tolerated. 6. Deep venous thrombosis prophylaxis. Bilateral sequential compression devices. 7. Gastrointestinal prophylaxis. Proton pump inhibitors. PLAN: Advancement of diet as per Gastroenterology. Continue proton pump inhibitors and Carafate. Start vitamin D supplements. Await Gastroenterology clearance before discharging the patient home. Case discussed with Dr. Daniels. BAN DANIELS MD, AM/BA Conf#: [id number] DID#: [id number] MTDD
[2016-11-09 18:41] LABS: HEMATOCRIT 41.9 % (42.0-52.0); HEMOGLOBIN 13.8 g/dl (14.0-18.0)
[2016-11-10 00:50] LABS: HEMOGLOBIN 12.8 g/dl (14.0-18.0)
[2016-11-10] MEDS: ALBUTEROL HFA 8 GM INHALER INH SCH ×6 (01:00→21:49)
[2016-11-10] MEDS: PANTOPRAZOLE IV 80 MG in SOD CHLORIDE 0.9% 100 ML IV SCH ×3 (04:50→23:19)
[2016-11-10] MEDS: SOD CHLORIDE 0.9% 1,000 ML IV SCH ×3 (04:52→21:50)
[2016-11-10 06:53] LABS: HEMATOCRIT 37.9 % (42.0-52.0); HEMOGLOBIN 12.5 g/dl (14.0-18.0)
[2016-11-10 08:10] VITALS: BP 114/62; RESP 16
[2016-11-10] MEDS: SUCRALFATE (100 MG/ML) 10ML CUP PO SCH ×4 (08:38→21:48)
[2016-11-10] MEDS: CHOLECALCIFEROL 1,000 UNIT TAB PO SCH (08:38)
[2016-11-10] MEDS ORDERED: INFLUENZA VIRUS VACCINE 0.5 ML (DISPENSING) IM* ONE (09:00)
[2016-11-10 11:45] LABS: HEMATOCRIT 37.8 % (42.0-52.0); HEMOGLOBIN 12.6 g/dl (14.0-18.0)
--- NOTE | 2016-11-10 15:43 | PN ---
Date/Time of Note Date/Time of Note DATE: 11/10/16 TIME: 15:41 Assessment/Plan VTE Prophylaxis VTE Prophylaxis Intervention: SCD's Lines/Catheters [facility] Peripheral IV Urinary Cath still in place: No Assessment/Plan Chief Complaint/Hosp Course Assessment and plan 1. Hematemesis with abdominal pain. Patient status post EGD that showed esophagitis and a 2 cm clean-based gastric ulceration with no stigmata. Continue on PPI medication. Await biopsy result. Monitor H&H 2. Normocytic anemia secondary to acute blood loss. Stable at present. Monitor H &H. Continue on PPI 3. Erosive esophagitis. Continue on PPI medication. Patient on Carafate 4. Vitamin D deficiency. Continue on vitamin D supplement EVD prophylaxis: SCDs GERD prophylaxis: PPI Disposition and plan: Diet per gastroenterology. Await biopsy results of EGD prior to discharge per GI recommendations. Discharge him medically stable and cleared by consultants. Discussed plan of care with Dr. Bo Problems: Subjective 24 Hr Interval Summary Free Text/Dictation Comfortable at present. No apparent distress Exam/Review of Systems Vital Signs Vitals Vital Signs Date Time Temp Pulse Resp B/P Pulse Ox O2 Delivery O2 Flow Rate FiO2 11/10/16 08:10 98.2 56 16 114/62 98 11/09/16 20:34 Room Air Intake and Output 11/09/16 11/09/16 11/10/16 14:59 22:59 06:59 Intake Total 135 ml 2900 ml 779 ml Output Total 2700 ml Balance 135 ml 200 ml 779 ml Exam General: No acute signs or symptoms of distress Eyes: pupils equal round, Anicteric sclera Neck: Supple nontender, no JVD Cardiac: S1, S2 auscultated, regular rhythm and rate Pulmonary: No coarse rhonchi or breathing auscultated GI: Abdomen soft nontender nondistended, bowel sounds active Extremities: No edema bilateral lower extremities Skin: Clean dry and intact Neurologic: Alert to person place and time and situation Results Result Diagram: 11/10/16 1126 11/09/16 0538 Results 24 hrs Laboratory Tests Test 11/09/16 18:25 11/10/16 00:35 11/10/16 05:37 11/10/16 11:13 Hematocrit 41.9 L 39.0 L 37.9 L Hemoglobin 13.8 L 12.8 L 12.5 L Stool Occult Blood NEGATIVE Test 11/10/16 11:26 Hematocrit 37.8 L Hemoglobin 12.6 L Medications Medications Current Medications Sodium Chloride (NS) 1,000 ml @ 125 mls/hr Q8H IV Last administered on 12:07; Admin Dose 125 MLS/HR; Start 11/08/16 at 04:26 Lorazepam (Ativan) 0.5 mg Q6H PRN IV ANXIETY; Start 11/08/16 at 04:30 Ondansetron HCl (Zofran Tab) 4 mg Q6H PRN PO NAUSEA AND/OR VOMITING; Start 07/17 at 04:30 Ondansetron HCl 4 mg 4 mg Q6H PRN IV NAUSEA AND/OR VOMITING; Start 11/08/16 at 04:30 Pantoprazole/ Sodium Chloride (Protonix Iv/NS) 100 ml @ 10 mls/hr Q10H IV Last administered on 11/10/16 12:12; Admin Dose 10 MLS/HR; Start 11/08/16 at 11 :00 Acetaminophen (Tylenol Tab) 1,000 mg Q6H PRN PO PAIN AND OR ELEVATED TEMP; Start 11/08/16 at 20:30 Cholecalciferol (Vitamin D) 1,000 unit DAILY PO Last administered on 11/10/16 08:38; Admin Dose 1,000 UNIT; Start 11/09/16 at 11:30 RUFINO KATZ Nov 10, 2016 15:43
[2016-11-10 18:40] LABS: HEMATOCRIT 41.1 % (42.0-52.0); HEMOGLOBIN 13.8 g/dl (14.0-18.0)
[2016-11-10 20:00] VITALS: BP 104/72; RESP 18
[2016-11-11] MEDS: ALBUTEROL HFA 8 GM INHALER INH SCH ×6 (00:46→21:00)
[2016-11-11 01:10] LABS: HEMATOCRIT 37.1 % (42.0-52.0); HEMOGLOBIN 12.5 g/dl (14.0-18.0)
[2016-11-11] MEDS: SOD CHLORIDE 0.9% 1,000 ML IV SCH ×3 (04:26→14:07)
[2016-11-11 05:42] LABS: HEMATOCRIT 36.7 % (42.0-52.0); HEMOGLOBIN 11.9 g/dl (14.0-18.0)
[2016-11-11] MEDS: SUCRALFATE (100 MG/ML) 10ML CUP PO SCH ×4 (06:23→20:00)
[2016-11-11 08:00] VITALS: BP 116/69; PULSE 67; RESP 18
[2016-11-11] MEDS: CHOLECALCIFEROL 1,000 UNIT TAB PO SCH (08:32)
[2016-11-11] MEDS: PANTOPRAZOLE IV 80 MG in SOD CHLORIDE 0.9% 100 ML IV SCH ×2 (08:36→19:49)
[2016-11-11 12:08] LABS: IRON 68 ug/dl (35-150)
--- NOTE | 2016-11-11 12:14 | CONS ---
Date/Time of Note Date/Time of Note DATE: 11/11/16 TIME: 12:12 Assessment/Plan Assessment/Plan Chief Complaint/Hosp Course Mr. Mo Blunt is a 36-year-old [place]raltarian-speaking male that presented to the ED today secondary to intense abdominal pain and one episode of hematemesis. Patient states that symptoms have been present for close to weeks but intensified yesterday. He denies fever, chills, shortness of breath, diarrhea, sick contacts, alcohol abuse, NSAID use, and any comorbid conditions. Patient also denies previous episode. Recommend EGD, patient advised of risks /benefits/alternatives to procedure and he provides informed consent to proceed. Problems: Additional Assessment/Plan Acute anemia Evaluate GI bleed versus chronic iron deficiency vs other etiology Monitor H&H every 8 hours, transfuse 2 units for hemoglobin less than 7.[address] abdomen: 1. No CT evidence for obstructive uropathy or renal calculi. 2. Mild retained stool within the ascending colon without obstruction. 3. No CT evidence for appendicitis. 4. Small left inguinal hernia containing fat. Continue PPI drip EGD: 1. Erosive esophagitis. 2. A 2 cm clean based gastric ulceration with no stigmata, no visible vessel. Biopsies obtained, rule out CA, benign endoscopic appearance. Further recommendations depend on clinical course Patient seen in collaboration with Dr. Leung Consultation Date/Type/Reason Admit Date/Time Nov 08, 2016 at 04:02 Type of Consultation: Gastroenterology 24 HR Interval Summary Free Text/Dictation Tolerating diet Awaiting pathology reports Denies abdominal pain, nausea, vomiting Exam/Review of Systems Vital Signs Vitals Vital Signs Date Time Temp Pulse Resp B/P Pulse Ox O2 Delivery O2 Flow Rate FiO2 11/10/16 20:00 98.0 68 18 104/72 98 11/09/16 20:34 Room Air Intake and Output 11/10/16 11/10/16 11/11/16 15:00 23:00 07:00 Intake Total 1071 ml 1200 ml 2600 ml Output Total 3700 ml 1200 ml Balance 1071 ml -2500 ml 1400 ml Exam Constitutional: alert, oriented, well developed Psych: nl mood/affect Head: normocephalic Eyes: EOMI, nl conjunctiva, nl lids ENMT: nl external ears & nose, nl lips & teeth, nl nasal mucosa & septum Respiratory: clear to auscultation, normal air movement Cardiovascular: regular rate and rhythm Gastrointestinal: soft, nontender Musculoskeletal: nl extremities to inspection Neurological: SECURITY OPERATIONS CENTER OPERATOR II-XII intact Results Result Diagram: 11/11/16 0440 11/09/16 0538 Results 24 hrs Laboratory Tests Test 11/10/16 18:25 11/11/16 00:30 11/11/16 04:40 Hematocrit 41.1 L 37.1 L 36.7 L Hemoglobin 13.8 L 12.5 L 11.9 L Medications Medications Current Medications Sodium Chloride (NS) 1,000 ml @ 125 mls/hr Q8H IV Last administered on 06:23; Admin Dose 125 MLS/HR; Start 11/08/16 at 04:26 Lorazepam (Ativan) 0.5 mg Q6H PRN IV ANXIETY; Start 11/08/16 at 04:30 Ondansetron HCl (Zofran Tab) 4 mg Q6H PRN PO NAUSEA AND/OR VOMITING; Start 07/17 at 04:30 Ondansetron HCl 4 mg 4 mg Q6H PRN IV NAUSEA AND/OR VOMITING; Start 11/08/16 at 04:30 Pantoprazole/ Sodium Chloride (Protonix Iv/NS) 100 ml @ 10 mls/hr Q10H IV Last administered on 11/11/16 08:36; Admin Dose 10 MLS/HR; Start 11/08/16 at 11 :00 Acetaminophen (Tylenol Tab) 1,000 mg Q6H PRN PO PAIN AND OR ELEVATED TEMP; Start 11/08/16 at 20:30 Cholecalciferol (Vitamin D) 1,000 unit DAILY PO Last administered on 11/11/16 08:32; Admin Dose 1,000 UNIT; Start 11/09/16 at 11:30 JIMMIE BETHEA Nov 11, 2016 12:14
[2016-11-11 12:17] LABS: TOTAL IRON BINDING CAPACITY 234 ug/dl (241-421)
[2016-11-11 13:28] LABS: HEMATOCRIT 40.4 % (42.0-52.0); HEMOGLOBIN 13.5 g/dl (14.0-18.0)
--- NOTE | 2016-11-11 14:39 | PN ---
Date/Time of Note Date/Time of Note DATE: 11/11/16 TIME: 14:37 Assessment/Plan VTE Prophylaxis VTE Prophylaxis Intervention: SCD's Lines/Catheters IV [facility] Type (from [facility]): Peripheral IV Urinary Cath still in place: No Assessment/Plan Chief Complaint/Hosp Course Assessment and plan 1. Hematemesis with abdominal pain. Patient status post EGD that showed esophagitis and a 2 cm clean-based gastric ulceration with no stigmata. Continue on PPI medication. Await biopsy result. Monitor H&H. With noted slight downward trend 2. Normocytic anemia secondary to acute blood loss. With noted slight downward trend. Continue to monitor 3. Erosive esophagitis. Continue on PPI medication. Patient on Carafate 4. Vitamin D deficiency. Continue on vitamin D supplement EVD prophylaxis: SCDs GERD prophylaxis: PPI Disposition and plan: Await biopsy results of EGD prior to discharge per GI recommendations. H&H slightly downward trending. Monitor follow-up. Discharge when cleared by consultants Discussed plan of care with Dr. Grant Problems: Subjective 24 Hr Interval Summary Free Text/Dictation Comfortable at present. No apparent distress Exam/Review of Systems Vital Signs Vitals Vital Signs Date Time Temp Pulse Resp B/P Pulse Ox O2 Delivery O2 Flow Rate FiO2 11/11/16 08:00 98.3 67 18 116/69 98 Room Air Intake and Output 11/10/16 11/10/16 11/11/16 15:00 23:00 07:00 Intake Total 1071 ml 1200 ml 2600 ml Output Total 3700 ml 1200 ml Balance 1071 ml -2500 ml 1400 ml Exam General: Comfortable at present Eyes: Seen equal round. Neck: No JVD today Cardiac: S1-S2 auscultated Pulmonary: No wheezing or rhonchi GI: Soft nontender nondistended Extremities: No edema bilateral lower extremities Skin: Clean dry and intact Neurologic: Alert to person place and time and situation Results Result Diagram: 11/11/16 1300 11/09/16 0538 Results 24 hrs Laboratory Tests Test 11/10/16 18:25 11/11/16 00:30 11/11/16 04:40 11/11/16 13:00 Hematocrit 41.1 L 37.1 L 36.7 L 40.4 L Hemoglobin 13.8 L 12.5 L 11.9 L 13.5 L Iron Level 68 Percent Iron Saturation 29 Total Iron Binding Capacity 234 L Medications Medications Current Medications Sodium Chloride (NS) 1,000 ml @ 125 mls/hr Q8H IV Last administered on 14:07; Admin Dose 125 MLS/HR; Start 11/08/16 at 04:26 Lorazepam (Ativan) 0.5 mg Q6H PRN IV ANXIETY; Start 11/08/16 at 04:30 Ondansetron HCl (Zofran Tab) 4 mg Q6H PRN PO NAUSEA AND/OR VOMITING; Start 07/17 at 04:30 Ondansetron HCl 4 mg 4 mg Q6H PRN IV NAUSEA AND/OR VOMITING; Start 11/08/16 at 04:30 Pantoprazole/ Sodium Chloride (Protonix Iv/NS) 100 ml @ 10 mls/hr Q10H IV Last administered on 11/11/16 08:36; Admin Dose 10 MLS/HR; Start 11/08/16 at 11 :00 Acetaminophen (Tylenol Tab) 1,000 mg Q6H PRN PO PAIN AND OR ELEVATED TEMP; Start 11/08/16 at 20:30 Cholecalciferol (Vitamin D) 1,000 unit DAILY PO Last administered on 11/11/16 08:32; Admin Dose 1,000 UNIT; Start 11/09/16 at 11:30 RUFINO KATZ Nov 11, 2016 14:39
[2016-11-11 19:53] VITALS: BP 113/66; RESP 18
[2016-11-12] MEDS: SOD CHLORIDE 0.9% 1,000 ML IV SCH ×2 (02:35→09:59)
[2016-11-12] MEDS: ALBUTEROL HFA 8 GM INHALER INH SCH ×4 (02:39→13:32)
[2016-11-12] MEDS: PANTOPRAZOLE IV 80 MG in SOD CHLORIDE 0.9% 100 ML IV SCH (05:17)
[2016-11-12 07:51] VITALS: BP 98/50; RESP 20
[2016-11-12] MEDS: CHOLECALCIFEROL 1,000 UNIT TAB PO SCH (08:00)
[2016-11-12] MEDS: SUCRALFATE (100 MG/ML) 10ML CUP PO SCH ×2 (08:00→11:54)
--- NOTE | 2016-11-12 11:51 | CONS ---
Date/Time of Note Date/Time of Note DATE: 11/12/16 TIME: 11:43 Assessment/Plan Assessment/Plan Chief Complaint/Hosp Course Mr. Mo Blunt is a 36-year-old Citizen Of [place]-speaking male that presented to the ED today secondary to intense abdominal pain and one episode of hematemesis. Patient states that symptoms have been present for close to weeks but intensified yesterday. He denies fever, chills, shortness of breath, diarrhea, sick contacts, alcohol abuse, NSAID use, and any comorbid conditions. Patient also denies previous episode. Recommend EGD, patient advised of risks /benefits/alternatives to procedure and he provides informed consent to proceed. Problems: Additional Assessment/Plan Acute anemia Evaluate GI bleed versus chronic iron deficiency vs other etiology Monitor H&H every 8 hours, transfuse 2 units for hemoglobin less than 7.[address] abdomen: 1. No CT evidence for obstructive uropathy or renal calculi. 2. Mild retained stool within the ascending colon without obstruction. 3. No CT evidence for appendicitis. 4. Small left inguinal hernia containing fat. Continue PPI drip EGD: 1. Erosive esophagitis. 2. A 2 cm clean based gastric ulceration with no stigmata, no visible vessel. Biopsy positive for H. pylori. Biopsies negative for malignancy, dysplasia, and metaplasia. H pylori positive Complete 7 day antibiotic plus PPI therapy (Metronidazole 500 mg BID + Omeprazole 20 mg BID + Clarithromycin 500 mg BID) Complete urea breath test in 8 weeks to confirm eradication Further recommendations depend on clinical course Patient seen in collaboration with Dr. Leung Consultation Date/Type/Reason Admit Date/Time Nov 08, 2016 at 04:02 Type of Consultation: Gastroenterology 24 HR Interval Summary Free Text/Dictation Advised patient of test results Patient denies abdominal pain, nausea, vomiting Tolerating diet Patient stable from GI standpoint GI sign off Exam/Review of Systems Vital Signs Vitals Vital Signs Date Time Temp Pulse Resp B/P Pulse Ox O2 Delivery O2 Flow Rate FiO2 11/12/16 07:51 98.3 68 20 98/50 98 11/11/16 08:00 Room Air Intake and Output 11/11/16 11/11/16 11/12/16 15:00 23:00 07:00 Intake Total 1040 ml 1200 ml 1500 ml Output Total 500 ml Balance 1040 ml 1200 ml 1000 ml Exam Constitutional: alert, oriented, well developed Psych: nl mood/affect Head: normocephalic Eyes: EOMI, nl conjunctiva, nl lids ENMT: nl external ears & nose, nl lips & teeth, nl nasal mucosa & septum Respiratory: clear to auscultation, normal air movement Cardiovascular: regular rate and rhythm Gastrointestinal: soft, nontender Musculoskeletal: nl extremities to inspection Neurological: FRUIT PICKER MACHINE OPERATOR II-XII intact Results Result Diagram: 11/11/16 1300 11/09/16 0538 Results 24 hrs Laboratory Tests Test 11/11/16 13:00 Hematocrit 40.4 L Hemoglobin 13.5 L Medications Medications Current Medications Sodium Chloride (NS) 1,000 ml @ 125 mls/hr Q8H IV Last administered on 09:59; Admin Dose 125 MLS/HR; Start 11/08/16 at 04:26 Lorazepam (Ativan) 0.5 mg Q6H PRN IV ANXIETY; Start 11/08/16 at 04:30 Ondansetron HCl (Zofran Tab) 4 mg Q6H PRN PO NAUSEA AND/OR VOMITING; Start 07/17 at 04:30 Ondansetron HCl 4 mg 4 mg Q6H PRN IV NAUSEA AND/OR VOMITING; Start 11/08/16 at 04:30 Pantoprazole/ Sodium Chloride (Protonix Iv/NS) 100 ml @ 10 mls/hr Q10H IV Last administered on 11/12/16 05:17; Admin Dose 10 MLS/HR; Start 11/08/16 at 11 :00 Acetaminophen (Tylenol Tab) 1,000 mg Q6H PRN PO PAIN AND OR ELEVATED TEMP; Start 11/08/16 at 20:30 Cholecalciferol (Vitamin D) 1,000 unit DAILY PO Last administered on 11/12/16 08:00; Admin Dose 1,000 UNIT; Start 11/09/16 at 11:30 JIMMIE BETHEA Nov 12, 2016 11:51
[2016-11-12] MEDS ORDERED: PANTOPRAZOLE (EC) 40 MG TAB PO SCH (12:00)
[2016-11-12] MEDS ORDERED: metroNIDAZOLE 500 MG TAB PO SCH (12:00)
[2016-11-12] MEDS ORDERED: CLARITHROMYCIN 500 MG TAB PO SCH (13:30)
[2016-11-12] MEDS ORDERED: ALBU8.5H3 INH (13:54)
[2016-11-12] MEDS ORDERED: METR500T14 PO (13:54)
[2016-11-12] MEDS ORDERED: CHOL100062 PO (13:54)
[2016-11-12] MEDS ORDERED: PANT40TA4 PO (13:54)
[2016-11-12] MEDS ORDERED: CARAS PO (13:54)
[2016-11-12] MEDS ORDERED: CLAR500T39 PO (13:54)
--- NOTE | 2016-11-12 13:56 | PDOCDIS ---
Discharge Instructions DIAGNOSIS Discharge Diagnosis: 1. reported GI bleed 2. h.pylori infection 3. erosive esophagitis CONDITION Patient Condition: Stable HOME CARE INSTRUCTIONS: Diet Instructions: Low Fat /Cholesterol FOLLOW UP/APPOINTMENTS Appointments 1. Follow up with Dr. Chinmay Leung in 1 month RUFINO KATZ Nov 12, 2016 13:56
--- NOTE | 2016-11-12 14:32 | DS ---
Date/Time of Note Date/Time of Note DATE: 11/12/16 TIME: 14:30 Discharge Summary Admission/Discharge Info Admit Date/Time Nov 08, 2016 at 04:02 Discharge Date/Time Final Diagnosis 1. Hematemesis with abdominal pain. 2. Normocytic anemia secondary to acute blood loss. 3. Erosive esophagitis. 4. Vitamin D deficiency. 5. H. Pylori infection Patient Condition: Stable Consults 1. Dr. Chinmay Leung 2. Juan Luis Garner NP Hospital Course This is a 36-year-old male with history of asthma who came to [facility] due to reports of abdominal pain and also reported hematemesis. Patient did report that he had abdominal pain for one week duration 10 out of 10 for one week prior to admission. He also claimed he had dark red emesis. He reported that it was blood. He did have initially NG tube in place with coffee-ground contents suctioned.. He was seen by tennis ball coverer hand. Patient did undergo EGD. Patient was seen with erosive esophagitis. There is also 2 cm clean-based gastric ulceration with no stigmata. Patient did have biopsy which is positive for H pylori and as such patient was placed on appropriate antibiotics as well as PPI medication. During his course of stay did improve. His anemia did stabilize and he had no further reports of hematemesis. He was otherwise optimized medically. He was continued on vitamin D for his vitamin D deficiency. He was continued on PPI and Carafate for his erosive esophagitis. The plan of care was discussed with patient and patient did verbalize understanding. On the day of discharge patient was in stable condition Discussed plan of care with Dr. Grant Discharge process time is 42 minutes Disposition: Home Home Meds Active Scripts Clarithromycin* (Biaxin*) 500 Mg Tablet, 500 MG PO BID for 10 Days, TAB Prov:RUFINO KATZ 11/12/16 Sucralfate* (Carafate*) 1 Gm/10 Ml Susp, 1 GM PO AC MEALS AND BEDTIME for 30 Days Prov:RUFINO KATZ 11/12/16 Pantoprazole* (Pantoprazole*) 40 Mg Tablet.dr 40 MG PO BID@06,18 for 10 Days Prov:RUFINO KATZ 11/12/16 Metronidazole (Flagyl) 500 Mg Tab, 500 MG PO BID for 10 Days, TAB Prov:RUFINO KATZ 11/12/16 Cholecalciferol* (Vitamin D3*) 1,000 Unit Tablet, 1000 UNIT PO DAILY for 30 Days , TAB Prov:RUFINO KATZ 11/12/16 Albuterol Sulfate* (Proair HFA*) 8.5 Gm Hfa.aer.ad, 2 PUFF INH Q4, #1 INHALER Prov:RUFINO KATZ 11/12/16 Discontinued Scripts Famotidine* (Pepcid*) 20 Mg Tablet, 20 MG PO QAM for 4 Days, TAB Prov:CARL LALA NP 11/01/16 Follow-up Plan CONDITION Patient Condition: Stable HOME CARE INSTRUCTIONS: Diet Instructions: Low Fat /Cholesterol FOLLOW UP/APPOINTMENTS Appointments 1. Follow up with Dr. Chinmay Leung in 1 month RUFINO KATZ Nov 12, 2016 14:32
== END 2016-11-12 14:43 | disposition home or self-care (01) | DRG 378 ==
LOC: E/R 01:04 → TEL 04:02 → PP2 11-09 22:56
PROVIDERS: ADMIT Family Medicine; ATTEND Family Medicine
PROC: 0D9670Z Drainage of Stomach with Drainage Device, Via Natural or Artificial Opening (ICD-10-PCS; 2016-11-08)
PROC: 0DB68ZX Excision of Stomach, Via Natural or Artificial Opening Endoscopic, Diagnostic (ICD-10-PCS; principal; 2016-11-08 13:00)
DX: K25.4 Chronic or unspecified gastric ulcer with hemorrhage (principal); D62 Acute posthemorrhagic anemia; E55.9 Vitamin D deficiency, unspecified; K22.10 Ulcer of esophagus without bleeding; B96.81 Helicobacter pylori [H. pylori] as the cause of diseases classified elsewhere; E66.9 Obesity, unspecified; Z68.34 Body mass index [BMI] 34.0-34.9, adult
CPT/HCPCS: 36415; 71010; 74176; 80053; 80061; 82270; 82652; 83036; 83540; 83690; 83735; 84100; 84439; 84443; 85014; 85018; 85025; 85610; 85730; 86850; 86900; 86901; 88305; 88312; 90686; 93005; 96361; 96374; 96375; C9113; J2270; J2354; J2405; J3010; J7030

== ENCOUNTER 2017-10-04 07:56 | Emergency (ER) | END 2017-10-04 10:55 | disposition home or self-care (01) ==